=== PATIENT | female | born 1975 | race African-American/Black ===

== ENCOUNTER 2018-11-27 06:29 | Emergency (ER) | payer OTHER ==
[~2018-11-27] VITALS: Ht 154.9 cm; Wt 90.7 kg
[~2018-11-27 06:29] MED LIST: ACETAMINOPHEN-1 EAC1 PO; ALEVE220 MG; BENADRYL25 MG; BENADRYL25 MG PO; FLEXERIL PO; Hydrocodone-Apap 5-325 Tablet PO; MEDROL DOSPAK21 TAB PO; NAPROSYN500 MG PO; NORCO 5-325 TA1 EACH PO; PREVACID 30MG C30 M1 PO; ULTRAM 50MG TAB50 MG PO
[2018-11-27 06:33] VITALS: BP 162/98
[2018-11-27] MEDS ORDERED: MEDROLDOSEPACK PO (06:46)
== END 2018-11-27 08:20 | disposition home or self-care (01) ==
LOC: ER 06:29
DX: L29.8 Other pruritus (principal); Z90.710 Acquired absence of both cervix and uterus; Z88.5 Allergy status to narcotic agent